=== PATIENT | female | born 1970 | race Caucasian/White ===

== ENCOUNTER 2018-03-23 23:13 | Emergency (ER) | payer OTHER, BC ==
[2018-03-24] MEDS: DIPHENHYDRAMINE 50 MG INJ IM (01:43)
[2018-03-24] MEDS: DEXAMETHASONE 10 MG/ML 1 ML INJ IM (01:44)
== END 2018-03-24 02:25 | disposition home or self-care (01) ==
LOC: FTE 23:13
DX: T78.1XXA Other adverse food reactions, not elsewhere classified, initial encounter (principal)
CPT/HCPCS: 96372; 99284-25